=== PATIENT | female | born 1995 | race Caucasian/White ===

== ENCOUNTER 2022-04-01 19:56 | Emergency (ER) | payer BC ==
[~2022-04-01] VITALS: Ht 172.7 cm; Wt 100.0 kg
[2022-04-01 20:23] VITALS: BP 140/82
[2022-04-01] MEDS ORDERED: HYDROcodone/acetaminophen 5mg/325mg tablet PO ONE (21:30)
[2022-04-01] MEDS ORDERED: HYDR-3965 PO (21:50)
[2022-04-02] MEDS ORDERED: HYDR-3965 PO (09:51)
== END 2022-04-01 22:14 | disposition home or self-care (01) ==
LOC: ER 19:57
DX: K08.89 Other specified disorders of teeth and supporting structures (principal); Z79.899 Other long term (current) drug therapy
CPT/HCPCS: 99283